=== PATIENT | female | born 1995 | race Two or more races ===

== ENCOUNTER 2024-01-20 16:31 | Outpatient (CLI) | payer BC, SELFPAY | END 2024-01-20 16:32 | disposition home or self-care (01) | LOC: NFLDREF 16:32 | PROVIDERS: Visit Provider Registered Nurse | DX: Z13.220 Encounter for screening for lipoid disorders (principal) | CPT/HCPCS: 80061 ==

== ENCOUNTER 2024-06-28 16:27 | Outpatient (CLI) | payer BC, SELFPAY ==
--- OUTSIDE RECORDS SUMMARY | 2024-06-28 16:30 | XMS_ITS | Clinical Summary ---
Author Organization [facility] Address [place], [place] [address] Care Team Providers Care Agriculture Scientist Name Role Phone Luz Mitchell MD Primary Care Prov ider Allergies No known active allergies Medications No known medications Encounters Date Type Department Care Team Description 06/18/2024 10:30 AM CDT Office Visit [facility] [address] [place] [address] Brady Angel [employer]HB[employer]SERVATION OFFICER [facility] Visit 06/18/2024 Travel 06/04/2024 1:00 PM CDT Office Visit [facility] [address] [place] [address] Luz Mitchell MD Establish Care; Mental Health Issue 06/04/2024 Travel from Last 3 Months Immunizations Name Administration Dates Next Due Hepatitis B (Adult) 04/27/2024,03/24/2024 Tdap 01/20/2024 Social History Tobacco Use Types Packs/Day Years Used Date Smoking Tobacco: Never Smokeless Tobacco: Never Tobacco Cessation:Counseling Given: Not Answered Alcohol Use Standard Drinks/Week Comments Yes 0 (1 standard drink = 0.6 oz pur e alcohol) PHQ-2 Answer Date Recorded PHQ-2 TOTAL SCORE 3 06/04/2024 Social Connections Answer Date Recorded Frequency of Communication with Friends and Fami ly 0 06/04/2024 Financial Resource Strain Answer Date R ecorded Difficulty of Paying Living Expenses 3 06/04/2024 Difficulty of Paying Living Expenses Not on file 06/04/2024 Food Insecurity Answer Date Recorded Worried About Running Out of Food in the Last Ye ar 1 06/04/2024 Transportation Needs Answer Date Record ed Lack of Transportation (Medical) 1 06/04/2024 Housing Stability Answer Date Recorded Unable to Pay for Housing in the Last Year 1 06/04/2024 Sex and Gender Information Value Date Recorded Sex Assigned at Not on file Gender Identity Not on file Sexual Orientation Not on file Obstetrics History Last Filed Vital Signs Vital Sign Reading Time Taken Comments Blood Pressure 102/66 06/04/2024 1:19 PM CDT Pulse 98 06/04/2024 1:19 PM CDT Temperature - - Respiratory Rate - - Oxygen Saturation 98% 06/04/2024 1:19 PM CDT Inhaled Oxygen Concentration - - Weight 54.4 kg (120 lb) 06/04/2024 1:19 PM CDT Height 166 cm (5' 5.35) 06/04/2024 1:19 PM CDT Body Mass Index 19.75 06/04/2024 1:19 PM CDT Plan of Treatment Health Maintenance Due Date Last Done Comments HIV for age 15-65 2011 Hepatitis C screening for ag e 18-79 2014 Pap test for age 21-65 2017 Influenza for age 9-49 08/01/2024 BMI (ht and wt on same day) for age 18+ 06/04/2025 06/04/2024 Depression screening for age 12+ 06/04/2025 06/04/20 Tetanus booster 01/20/2034 01/20/2024 Tdap Completed 01/20/2024 COVID-19 vaccine series Completed 03/24/2024 Pneumococcal series for age 6-64 Aged Out No longer eligible based on patient's age to complete this topic Care Teams Agriculture Scientist Relationship Specialty Start Date End Date Luz Mitchell MD [address] [place] [address] PCP - General Family Practice 05/31/24
== END 2024-06-28 16:28 | disposition home or self-care (01) ==
PROVIDERS: PCP Family Medicine; Visit Provider Family Medicine
DX: E22.1 Hyperprolactinemia (principal)
CPT/HCPCS: 84146

== ENCOUNTER 2025-03-01 14:20 | Outpatient (CLI) | payer BC, SELFPAY ==
[2025-03-04 04:35] LABS: HPV Source Cervix; HPV, High Risk by TMA Not Detected
[2025-03-09 11:21] LABS: Pap Test Reviewed by Path Done
== END 2025-03-01 14:21 | disposition home or self-care (01) ==
PROVIDERS: PCP Family Medicine; Visit Provider Registered Nurse
DX: Z12.4 Encounter for screening for malignant neoplasm of cervix (principal); Z11.51 Encounter for screening for human papillomavirus (HPV)
CPT/HCPCS: 87624; 87625; 88141; 88142